=== PATIENT | female | born 1935 | race Caucasian/White ===

== ENCOUNTER 2018-11-17 19:30 | Observation (INO) | payer MEDICARE, OTHER ==
[~2018-11-17] VITALS: Ht 154.9 cm; Wt 48.2 kg
--- NOTE | 2018-11-17 19:27 | ER Report ---
History and Physical Time Seen By MD: 19:27 HPI/ROS CHIEF COMPLAINT: Vomiting, right red blood HISTORY OF PRESENT ILLNESS: 83-year-old female on Plavix and aspirin for hypertension and coronary artery disease, today vomited blood after developing sudden nausea proximally one hour prior to arrival. She describes a large amount of bright red blood with mixed with phlegm to the toilet. She called EMS who brought her in. On arrival. She has hemodynamically stable. She's complaining of severe nausea and vomiting. Peripheral IVs are established. Diagnostic studies are sent off. Patient denies taking NSAIDs or history of stomach problems. Patient states eating tuna casserole. She denies red food or red juice. REVIEW OF SYSTEMS: Respiratory: No cough, no dyspnea. Cardiovascular: No chest pain, no palpitations. Gastrointestinal: As above Musculoskeletal: No back pain. Allergies: Coded Allergies: Sulfa (Sulfonamide Antibiotics) (Verified Allergy, Unknown, 06/16/17) atorvastatin (Verified Allergy, Unknown, 06/16/17) glyburide (Verified Allergy, Unknown, 06/16/17) irbesartan (Verified Allergy, Unknown, 06/16/17) pioglitazone (Verified Allergy, Unknown, 06/16/17) ramipril (Verified Allergy, Unknown, 06/16/17) tetracycline (Verified Allergy, Unknown, 06/16/17) Uncoded Allergies: STEROIDS (Allergy, Unknown, 06/17/07) Home Meds Active Scripts Aspirin (ASPIRIN EC) 325 Mg Tablet., 325 MG PO NOON, #30 TAB Prov:RANDALL FONTANA DO 12/31/15 Reported Medications Blood Sugar Diagnostic (FREESTYLE LITE TEST STRIPS) 1 Each Strip, 1 EACH MC TID, STRIP 11/18/18 Estradiol Cypionate (DEPO-ESTRADIOL) 5 Mg/Ml Soln, 5 MG IM ONLY Q3WK 11/18/18 Albuterol Sulfate 0.083% (ALBUTEROL SULFATE 0.083%) 2.5 Mg/3 Ml Vial.neb, 1 VIAL INH 3-4XD PRN for SHORTNESS OF BREATH, INH 11/18/18 Fluticasone/Vilanterol 100/25 Mcg/Inh (BREO ELLIPTA 100/25 MCG) 1 Each Aer.pow.ba, 1 PUFF INH QDAY, INH 11/18/18 Insulin Detemir (LEVEMIR) 100 Unit/Ml Injs, 12 UNIT SUBQ QDAY 11/18/18 Metformin Hcl (METFORMIN HCL) 500 Mg Tablet, 1 TAB PO BID, TAB 11/18/18 Ezetimibe (ZETIA) 10 Mg Tablet, 10 MG PO QDAY, TAB 12/18/15 Estrogens, Conjugated 0.625 Mg/Ml Vag Cream (PREMARIN 0.625 MG/ML VAGINAL CR) 42.5 Gm Cream.appl, VG 3XW PRN for SEE COMMENT 12/18/15 Clonidine Hcl (Catapres) 0.2 Mg Tablet, 0.2 MG PO BID Take 1 tablet each morning, and evening. 02/10/11 Metoprolol Succinate (Toprol Xl) 100 Mg Tab.sr.24h, 100 MG PO BID 02/10/11 Discontinued Reported Medications Hum Insulin Nph/Reg Insulin Hm (RELION NOVOLIN 70-30 VIAL) 100 Unit/1 Ml Vial, 10 UNIT SQ, VIAL 01/23/15 Clopidogrel Bisulfate (Plavix) 75 Mg Tab, 75 MG PO QDAY Take 1 tablet by mouth daily. 02/10/11 Discontinued Scripts Metformin Hcl (METFORMIN HCL) 500 Mg Tablet, 500 MG PO QPM, #30 TAB Prov:RANDALL FONTANA DO 12/31/15 Sodium Chloride (SODIUM CHLORIDE) 1 Gm Tab, 1 GM PO BID, #60 TAB Prov:RANDALL FONTANA DO 12/31/15 Tramadol Hcl (TRAMADOL HCL) 50 Mg Tablet, 50-100 MG PO Q6H PRN for PAIN, #30 TAB Prov:RANDALL FONTANA DO 12/31/15 Valsartan (Valsartan) 160 Mg Tablet, 1 TAB PO QDAY, #30 TAB Prov:RANDALL FONTANA DO 12/31/15 Past Medical/Surgical History Patient has a past medical and surgical history of heart attack, hypertension, stents placed, spinal stenosis, arthritis, femoral head fracture, wears glasses, has diabetes, hysterectomy, total hip of the left. Reviewed Nurses Notes: Yes Old Medical Records Reviewed: Yes Hx Smoking: No Smoking Status: Never Smoker Exposure to Second Hand Smoke?: No Hx Substance Use Disorder: No Hx Alcohol Use: No Constitutional Vital Sign - Last 24 Hours 11/17/18 11/17/18 19:29 20:02 B/P (MAP) 110/58 (75) O2 Delivery Room Air Intake and Output 11/17/18 11/17/18 11/18/18 14:59 22:59 06:59 Intake Total 1005 ml Balance 1005 ml Physical Exam General Appearance: The patient is alert, has no immediate need for airway pr otection and no current signs of toxicity. Vital signs stable, afebrile, pulse ox normal HEENT: Pupils equal and round no injection. Oropharynx without redness or exudate, mucous. Membranes are moist Respiratory: Chest is non tender, lungs are clear to auscultation. Cardiac: regular rate and rhythm Gastrointestinal: Abdomen is soft mild epigastric tenderness, no masses, bowel sounds normal. Rectal: Brown stool, heme positive on fecal occult testing Musculoskeletal: Neck: Neck is supple and non tender. Extremities have full range of motion and are non tender. Skin: No rashes or lesions. DIFFERENTIAL DIAGNOSIS: After history and physical exam differential diagnosis was considered for upper GI bleeding including but not limited to ulcer disease, gastritis, Kim-Fernandes tear, and esophageal varices. Medical Decision Making Data Points Result Diagram: 11/18/18 1148 11/18/18 1148 Laboratory Hematology Test 11/17/18 00:00 11/17/18 19:54 11/17/18 21:02 Prothrombin Time 13.2 seconds (12.0-14.4) Prothromb Time International Ratio 1.00 Activated Partial Thromboplast Time 33 seconds (23-35) Amylase Level 117 U/L (0-110) Lipase 261 U/L (23-300) Lactate 2.9 mmol/L (0.7-2.1) Stool Occult Blood (IFOB) Positive (NEGATIVE) Chemistry Test 11/17/18 00:00 11/17/18 19:54 11/17/18 21:02 Prothrombin Time 13.2 seconds (12.0-14.4) Prothromb Time International Ratio 1.00 Activated Partial Thromboplast Time 33 seconds (23-35) Amylase Level 117 U/L (0-110) Lipase 261 U/L (23-300) Lactate 2.9 mmol/L (0.7-2.1) Stool Occult Blood (IFOB) Positive (NEGATIVE) Coagulation Test 11/17/18 00:00 Prothrombin Time 13.2 seconds Prothromb Time International Ratio 1.00 Activated Partial Thromboplast Time 33 seconds EKG/Imaging EKG Interpretation 12 lead EK Rhythm: normal sinus rhythm [place]: normal QRS: normal ST segments: normal, comparison to previous EKG dated 06/18/70, no significant change Imaging X-ray: Single view portable chest x-ray was obtained. I viewed the images myself on the PACS system. My interpretation of the images is: No infiltrate, no effusion, normal mediastinum., Comparison to previous chest x-ray 12/18/59, no significant change. The radiologist interpretation had no clinically significant variation from this interpretation. ED Course/Re-evaluation Clinical Indication for ER IV: Hydration, IV Access ED Course Patient was admitted to an examination room. H&P was done. The differential diagnoses was considered. Patient with hemodynamically stable vital signs. She admitted to vomiting bright red blood approximately a cup or 2. Patient is 2nd episode of dry heaves mostly phlegm with blood tinging. Patient's H&H is drop significantly, but her old H&H is 2 years old. She is on Plavix and aspirin for cardiac stenting 2004. Agents crossmatch for 2 units of blood. She's given Protonix IV 80 mg and a drip was started. She is admitted to the hospital. Her lactate is mildly elevated at 2.9. 11/17/2018 9:48:11 pm case discussed with Michel Herrera. General surgery on-call, who accepts the patient for admission. He would like medicine consult and be involved in her medical management. 11/17/2018 9:56:16 pm case discussed with Dr. Rita Shook hospitalist on-call, who involved in the internal management hospitalist care on this patient. Decision to Disposition Date: November 17, 2018 Decision to Disposition Time: 21:28 Depart Departure Latest Vital Signs Vital Signs Date Time Temp Pulse Resp B/P (MAP) Pulse Ox O2 Delivery O2 Flow Rate FiO2 11/17/18 20:02 110/58 (75) 11/17/18 19:29 Room Air Impression: Primary Impression: Upper GI bleeding Additional Impressions: CAD (coronary artery disease) Current use of senior care anticoagulation HTN (hypertension) Hyponatremia Condition: Improved Disposition: Admitted from ER Referrals: JOVANNY EDUARDO DO (PCP) Problem Qualifiers Additional Impressions: CAD (coronary artery disease) Coronary Disease-Associated Artery/Lesion type: unspecified vessel or lesion type [place] vs. transplanted heart: [place] heart Associated angina: angina presence unspecified Qualified Codes: I25.10 - Atherosclerotic heart disease of [place] coronary artery without angina pectoris HTN (hypertension) Hypertension type: essential hypertension Qualified Codes: I10 - Essential (primary) hypertension EDISON SALAZAR DO November 17, 2018 19:27
[~2018-11-17 19:30] MED LIST changes: -ALBU2.5V36 INH; -AMOX-362 PO; -BLOO1STR16 MC; -FLUT1AER INH; -LEVI SUBQ; -METR500T15 PO; +NS(*) 0.9% 1000 ML BAG 1,000 ML IV ONE; -PANT40TA65 PO; +PANTOPRAZOLE SOD 40 MG IV VIAL IVP ONE; -SUCR1TAB85 PO; -[UNRECOGNIZED DRUG - CODE] PO
[2018-11-17] MEDS ORDERED: ONDANSETRON 4 MG/2 ML VIAL IVP ONE (19:45)
[2018-11-17 20:16] LABS: PLATELET COUNT, AUTOMATED 338 K/uL (150-450)
--- NOTE | 2018-11-17 21:29 | EKG ---
FACILITY: [facility] - [place] PATIENT NAME: ASHTYN EDOUARD : [id number] MR: [id number] V: [id number] EXAM DATE: ORDERING PHYSICIAN: EDISON SALAZAR TECHNOLOGIST: CECELIA Test Reason : VOMITING BLOOD Blood Pressure : / mmHG Vent. Rate : 062 BPM Atrial Rate : 062 BPM P-R Int : 180 ms QRS Dur : 066 ms QT Int : 408 ms P-R-T Axes : 045 015 090 degrees QTc Int : 414 ms Normal sinus rhythm Normal ECG When compared with ECG of 16-JUN-2017 16:09, No significant change was found Confirmed by RAJ LONG ([id number]) on 11/17/2018 10:05:58 PM Referred By: Confirmed By:RAJ LONG
--- NOTE | 2018-11-17 21:39 | RADIOLOGY IMAGING REPORT ---
FACILITY: [facility] - [place] PATIENT NAME: Natalia Marrero : 1935 MR: [id number] V: [id number] EXAM DATE: ORDERING PHYSICIAN: EDISON SALAZAR TECHNOLOGIST: Location: [facility] Patient: Natalia Marrero : 1935 Visit/Account:[id number] Date of Sevice: 11/17/2018 EXAMINATION: Portable AP Chest HISTORY: Vomited blood. COMPARISON: 12/18/2015. FINDINGS: The lungs are clear. No focal consolidation or pleural effusion. No pneumothorax. Normal heart size and pulmonary vascularity. Aortic calcification. Visualized osseous structures appear intact. IMPRESSION: No evidence of acute cardiopulmonary disease. Report Dictated By: Trey Davis MD at 11/17/2018 9:33 PM Report E-Signed By: Trey Davis MD at 11/17/2018 9:35 PM WSN:[id number]
[2018-11-17] MEDS ORDERED: PANTOPRAZOLE SOD 40 MG IV VIAL IVP ONE (21:50)
[2018-11-17] MEDS ORDERED: PANTOPRAZOLE SOD(*)40 MG VIAL 80 MG in NS(*) 0.9% 100 ML BAG 100 ML IVPB ONE (21:50)
[2018-11-17] MEDS ORDERED: NS(*) 0.9% 1000 ML BAG 1,000 ML IV ONE (22:10)
[2018-11-17] MEDS ORDERED: ALBUTEROL 2.5 MG/3 ML NEB NEB PRN (22:45)
--- NOTE | 2018-11-17 23:05 | Hospitalist Consultation ---
History of Present Illness Requesting Physician Rashel Reason for Consult Medication management History of Present Illness 83yo female with a h/o T2DM, PVD and CAD who presented to the ER after a hematemesis event. She was in her normal state of health until after dinner. She became nauseated, went to the bathroom and vomited up bright red blood. Her last BM was 3 days ago and it was normal for her. She denies any black or maroon stools. She takes Aleve intermittently for her teeth. She last took one about a week ago. She takes about 1 a week. No changes in medications. She has been on ASA since 2004 since her [place]. She has been on Plavix for many years, also, but she isn't clear why she takes it. She denies cp/sob. History Problems: (1) Type 2 diabetes mellitus Status: Chronic (2) CAD (coronary artery disease) Status: Chronic (3) Hyponatremia Status: Acute (4) HTN (hypertension) Status: Chronic Home Meds Active Scripts Aspirin (ASPIRIN EC) 325 Mg Tablet.dr, 325 MG PO NOON, #30 TAB Prov:RANDALL FONTANA DO 12/31/15 Metformin Hcl (METFORMIN HCL) 500 Mg Tablet, 500 MG PO QPM, #30 TAB Prov:RANDALL FONTANA DO 12/31/15 Sodium Chloride (SODIUM CHLORIDE) 1 Gm Tab, 1 GM PO BID, #60 TAB Prov:RANDALL FONTANA DO 12/31/15 Tramadol Hcl (TRAMADOL HCL) 50 Mg Tablet, 50-100 MG PO Q6H PRN for PAIN, #30 TAB Prov:RANDALL FONTANA DO 12/31/15 Valsartan (Valsartan) 160 Mg Tablet, 1 TAB PO QDAY, #30 TAB Prov:RANDALL FONTANA DO 12/31/15 Reported Medications Ezetimibe (ZETIA) 10 Mg Tablet, 10 MG PO QDAY, TAB 12/18/15 Estrogens, Conjugated 0.625 Mg/Ml Vag Cream (PREMARIN 0.625 MG/ML VAGINAL CR) 42.5 Gm Cream.appl, VG 3XW PRN for SEE COMMENT 12/18/15 Hum Insulin Nph/Reg Insulin Hm (RELION NOVOLIN 70-30 VIAL) 100 Unit/1 Ml Vial, 10 UNIT SQ, VIAL 01/23/15 Clonidine Hcl (Catapres) 0.2 Mg Tablet, 0.2 MG PO BID Take 1 tablet each morning, noon, and evening. 02/10/11 Metoprolol Succinate (Toprol Xl) 100 Mg Tab.sr.24h, 100 MG PO DAILY Take 1 tablet by mouth daily. 02/10/11 Clopidogrel Bisulfate (Plavix) 75 Mg Tab, 75 MG PO QDAY Take 1 tablet by mouth daily. 02/10/11 Allergies: Coded Allergies: Sulfa (Sulfonamide Antibiotics) (Verified Allergy, Unknown, 06/16/17) atorvastatin (Verified Allergy, Unknown, 06/16/17) glyburide (Verified Allergy, Unknown, 06/16/17) irbesartan (Verified Allergy, Unknown, 06/16/17) pioglitazone (Verified Allergy, Unknown, 06/16/17) ramipril (Verified Allergy, Unknown, 06/16/17) tetracycline (Verified Allergy, Unknown, 06/16/17) Uncoded Allergies: STEROIDS (Allergy, Unknown, 06/17/07) Other Social/Family Hx She lives alone. . She stopped smoking in 2004 and has a 52 pack year history. Hx Smoking: No Smoking Status: Former Smoker Exposure to Second Hand Smoke?: No Caffeine Intake: Coffee Caffeine/Cups Per Day: 1 cup Hx Alcohol Use: No Hx Substance Use Disorder: No Review of Systems All Systems Reviewed/Normal: Yes, Except as Noted Exam Vital Signs Vital Signs Date Time Temp Pulse Resp B/P (MAP) Pulse Ox O2 Delivery O2 Flow Rate FiO2 11/17/18 20:02 110/58 (75) 11/17/18 19:29 Room Air General Appearance: Alert, Awake, No Acute Distress Eyes: Other (conjunctival hemorrhage in right low mid eye) ENT: Moist Mucous Membranes Cardiovascular: Regular Rate and Rhythm Respiratory: Clear to Auscultation GI: Abd Soft and Non-Tender Extremities: No Edema Integumentary: No Jaundice, No Cyanosis Medical Decision Making Data Points Result Diagram: 11/17/18 0000 11/17/18 Item Value Date Time Lactate 2.9 mmol/L H 11/17/181953 Troponin I < 0.012 ng/ml 11/17/18 Total Bilirubin < 0.1 mg/dl L 11/17/18 Aspartate Amino Transf (AST/SGOT) 18 U/L 11/17/18 Alanine Aminotransferase (ALT/SGPT) 14 U/L 11/17/18 Alkaline Phosphatase 145 U/L H 11/17/18 Neutrophils (%) (Auto) 72.3 % 11/17/18 Lymphocytes (%) (Auto) 19.1 % 11/17/18 Monocytes (%) (Auto) 5.4 % 11/17/18 Eosinophils (%) (Auto) 2.1 % 11/17/18 Basophils (%) (Auto) 1.1 % 11/17/18 Stool Occult Blood (IFOB) Positive H 11/17/18 210 Prothromb Time International Ratio 1.00 11/17/18 Sodium Level 129 mmol/L L 06/16/17 1541 Creatinine 1.20 mg/dl H 06/16/17 1541 Creatinine 1.20 mg/dl H 11/17/18 Amylase Level 117 U/L H 11/17/18 Lipase 261 U/L 11/17/18 EKG / Imaging EKG Interpretation Vent. Rate : 062 BPM Atrial Rate : 062 BPM P-R Int : 180 ms QRS Dur : 066 ms QT Int : 408 ms P-R-T Axes : 045 015 090 degrees QTc Int : 414 ms Normal sinus rhythm Normal ECG When compared with ECG of 16-JUN-2017 16:09, No significant change was found Confirmed by RAJ LONG ([id number]) on 11/17/2018 10:05:58 PM Imaging CXR - No evidence of acute cardiopulmonary disease. Assessment and Plan Problems: (1) Upper GI bleeding Status: Acute Assessment & Plan: She presented with one episode of bloody emesis. Exacerbated by ASA/Plavix use and weekly Aleve use. Hgb is decreased. BP/P stable. ASA/Plavix/NSAIDs to be held. Dr. Rhodes is managing. (2) CAD (coronary artery disease) Status: Chronic Assessment & Plan: [place] with stent placement in 2004. Not on a statin, but taking ASA. It is unclear when the Plavix was added or exactly why. Will try to get records from Dr. Eduardo to clarify. (3) Type 2 diabetes mellitus Status: Chronic Assessment & Plan: Chronically on Metformin 500mg bid and Lantus 10 units bid. Holding both for now. Q6 glucose with SSI level 2 to cover. (4) HTN (hypertension) Status: Chronic Assessment & Plan: Chronically on clonidine and Toprol. BP wnl. Holding both for now secondary to the hematemesis. (5) History of stent insertion of renal artery Status: Resolved Assessment & Plan: She can't remember why or when this was done. Copies to: JOVANNY EDUARDO DO; RANDALL RHODES MD ; Venous Thromboembolism Antithrombotics Is Pt On Any Antithrombotics?: No Exam Sepsis Risk: No Definite Risk Problem Qualifiers (1) CAD (coronary artery disease): Coronary Disease-Associated Artery/Lesion type: unspecified vessel or lesion type [place] vs. transplanted heart: [place] heart Associated angina: angina presence unspecified Qualified Codes: I25.10 - Atherosclerotic heart disease of [place] coronary artery without angina pectoris (2) HTN (hypertension): Hypertension type: essential hypertension Qualified Codes: I10 - Essential (primary) hypertension RAJ LONG MD November 17, 2018 23:04
[2018-11-17 23:21] VITALS: BP 176/81
[2018-11-18] VITALS (17 sets, daily range): BP systolic 167–218; BP diastolic 66–108; Ht 154.9 cm; Wt 48.2 kg
[2018-11-18 06:14] LABS: PLATELET COUNT, AUTOMATED 225 K/uL (150-450)
[2018-11-18] MEDS ORDERED: PANTOPRAZOLE SOD(*)40 MG VIAL 80 MG in NS(*) 0.9% 100 ML BAG 100 ML IV SCH (06:35)
[2018-11-18] MEDS ORDERED: NS(*) 0.9% 1000 ML BAG 1,000 ML IV PRN (07:20)
[2018-11-18] MEDS ORDERED: FLUSH 10 ML SYR IVP PRN (07:20)
--- NOTE | 2018-11-18 07:59 | Gen Surgery History & Physical ---
History of Present Illness Chief Complaint Hematemesis History of Present Illness 83yo female with CAD, DM, HTN presents with 1 episode of hematemesis last evening, significant volume. No abdominal pain. No melana or BRBPR. Last BM 3 days ago. No previous h/o PUD. No h/o EGD. Has had nausea for last 24 hours. Takes full strength ASA and Plavix for CAD with coronary stent. Last stent was placed over 10 years ago. Rare NSAIDS otherwise. Did take 2 Aleve last week but that's all. No steroid use. History Problems: (1) Hyperlipidemia Status: Chronic (2) Renovascular hypertension Status: Chronic (3) Right knee pain Status: Chronic (4) CAD (coronary artery disease) Status: Chronic (5) HTN (hypertension) Status: Chronic (6) Type 2 diabetes mellitus Status: Chronic (7) S/P hysterectomy Status: Chronic Home Meds Active Scripts Aspirin (ASPIRIN EC) 325 Mg Tablet.dr, 325 MG PO NOON, #30 TAB Prov:RANDALL FONTANA DO 12/31/15 Metformin Hcl (METFORMIN HCL) 500 Mg Tablet, 500 MG PO QPM, #30 TAB Prov:RANDALL FONTANA DO 12/31/15 Sodium Chloride (SODIUM CHLORIDE) 1 Gm Tab, 1 GM PO BID, #60 TAB Prov:RANDALL FONTANA DO 12/31/15 Tramadol Hcl (TRAMADOL HCL) 50 Mg Tablet, 50-100 MG PO Q6H PRN for PAIN, #30 TAB Prov:RANDALL FONTANA DO 12/31/15 Valsartan (Valsartan) 160 Mg Tablet, 1 TAB PO QDAY, #30 TAB Prov:RANDALL FONTANA DO 12/31/15 Reported Medications Ezetimibe (ZETIA) 10 Mg Tablet, 10 MG PO QDAY, TAB 12/18/15 Estrogens, Conjugated 0.625 Mg/Ml Vag Cream (PREMARIN 0.625 MG/ML VAGINAL CR) 42.5 Gm Cream.appl, VG 3XW PRN for SEE COMMENT 12/18/15 Hum Insulin Nph/Reg Insulin Hm (RELION NOVOLIN 70-30 VIAL) 100 Unit/1 Ml Vial, 10 UNIT SQ, VIAL 01/23/15 Clonidine Hcl (Catapres) 0.2 Mg Tablet, 0.2 MG PO BID Take 1 tablet each morning, noon, and evening. 02/10/11 Metoprolol Succinate (Toprol Xl) 100 Mg Tab.sr.24h, 100 MG PO DAILY Take 1 tablet by mouth daily. 02/10/11 Clopidogrel Bisulfate (Plavix) 75 Mg Tab, 75 MG PO QDAY Take 1 tablet by mouth daily. 02/10/11 Allergies: Coded Allergies: Sulfa (Sulfonamide Antibiotics) (Verified Allergy, Unknown, 06/16/17) atorvastatin (Verified Allergy, Unknown, 06/16/17) glyburide (Verified Allergy, Unknown, 06/16/17) irbesartan (Verified Allergy, Unknown, 06/16/17) pioglitazone (Verified Allergy, Unknown, 06/16/17) ramipril (Verified Allergy, Unknown, 06/16/17) tetracycline (Verified Allergy, Unknown, 06/16/17) Uncoded Allergies: STEROIDS (Allergy, Unknown, 06/17/07) Review of Systems All Systems Reviewed/Normal: Yes, Except as Noted Gastrointestinal: Nausea, Hematemesis Exam General Appearance: Alert, Awake, No Acute Distress, Afebrile Neuro: No Gross deficits Eyes: PERRLA GI: Abd Soft and Non-Tender Extremities: Warm, Perfused Psych: Alert & Oriented X3, Appropriate Mood & Affect Medical Decision Making Data Points Result Diagram: 11/18/1836 11/18/18 0536 Assessment and Plan Problems: (1) Upper GI bleeding Status: Acute Assessment & Plan: 11/18/18: Admit, NPO, IV fluids, PPI gtt, follow H/H. Hospitalist consultation to help with comorbid management. Will confer with them regarding transfusion criteria given her h/o CAD. Will proceed with EGD today to evaluate UGI tract for source of hematemesis. Will check for H.pylori. Hold off on any blood thinners or NSAIDS. Will let plavix wear off. Plan d/w pt. She seems to understand and is agreeable with this plan. (2) Anemia due to acute blood loss Status: Acute (3) Type 2 diabetes mellitus Status: Chronic (4) Current use of paint mixer hand anticoagulation Status: Acute (5) HTN (hypertension) Status: Chronic Condition Stable. Time Spent: < 30 min Venous Thromboembolism Antithrombotics Is Pt On Any Antithrombotics?: No Problem Qualifiers (1) Type 2 diabetes mellitus: Diabetes mellitus paint mixer hand insulin use: without paint mixer hand use Diabetes mellitus complication status: without complication Qualified Codes: E11.9 - Type 2 diabetes mellitus without complications (2) HTN (hypertension): Hypertension type: essential hypertension Qualified Codes: I10 - Essential (primary) hypertension RANDALL RHODES MD November 18, 2018 07:59
[2018-11-18] MEDS: ONDANSETRON 4 MG/2 ML VIAL IVP PRN ×2 (08:03→17:49)
[2018-11-18] MEDS ORDERED: METOPROLOL TART 5 MG/5 ML VIAL IVP ONE (09:10)
--- NOTE | 2018-11-18 09:33 | Hospitalist Progress Note ---
Subjective Progress Notes Subjective She was admitted for hematemesis. She has no complaints this morning. She plans to have EGD this afternoon. Patient Complains of: Cardiovascular: No: Chest Pain Respiratory: No: Shortness of Breath Physical Exam Vital Signs Date Time Temp Pulse Resp B/P (MAP) Pulse Ox O2 Delivery O2 Flow Rate FiO2 11/18/18 07:25 98 Nasal Cannula 1.0 11/18/18 07:04 98.5 66 16 171/68 (102) Intake and Output 11/18/18 01:00 Intake Total 1255 ml Balance 1255 ml Intake IV Total 1255 ml General Appearance: Alert, Awake, No Acute Distress, Afebrile Neuro: No Gross deficits Cardiovascular: Regular Rate and Rhythm Respiratory: No Respiratory Distress, Clear to Auscultation Psych: Alert & Oriented X3, Appropriate Mood & Affect Result Diagram: 11/18/18 0536 11/18/1836 Assessment and Plan Problems: (1) Upper GI bleeding Status: Acute Assessment & Plan: She presented with one episode of bloody emesis. Exacerbated by ASA/Plavix use and weekly Aleve use. Hgb is decreased. BP/P stable. ASA/Plavix/NSAIDs to be held. Dr. Kiser is managing. (2) CAD (coronary artery disease) Status: Chronic Assessment & Plan: [place] with stent placement in 2004. Not on a statin, but taking ASA. It is unclear when the Plavix was added or exactly why. Will try to get records from Dr. Nunez to clarify. (3) Type 2 diabetes mellitus Status: Chronic Assessment & Plan: Chronically on Metformin 500mg bid and Lantus 10 units bid. Holding both for now. Q6 glucose with SSI level 2 to cover. (4) HTN (hypertension) Status: Chronic Assessment & Plan: Chronically on clonidine and Toprol. BP wnl. Holding both for now secondary to the hematemesis. Will give one dose IV Metoprolol for elevated blood pressures. (5) History of stent insertion of renal artery Status: Resolved Assessment & Plan: She can't remember why or when this was done. Exam Sepsis Risk: No Definite Risk Problem Qualifiers (1) CAD (coronary artery disease): Coronary Disease-Associated Artery/Lesion type: unspecified vessel or lesion type [place] vs. transplanted heart: [place] heart Associated angina: angina presence unspecified Qualified Codes: I25.10 - Atherosclerotic heart disease of [place] coronary artery without angina pectoris (2) Type 2 diabetes mellitus: Diabetes mellitus intermediate insulin use: without intermediate use Diabetes mellitus complication status: without complication Qualified Codes: E11.9 - Type 2 diabetes mellitus without complications (3) HTN (hypertension): Hypertension type: essential hypertension Qualified Codes: I10 - Essential (primary) hypertension DEYSI ROGERS November 18, 2018 09:33
--- NOTE | 2018-11-18 09:34 | NUR ---
Consent for release of medical records signed and faxed to PCP office aprox [phone] Addendum: 11/18/18 at 0935 by DALLIN GUZMAN RN Amended: Links added.
[2018-11-18] MEDS ORDERED: NORMOSOL R SOLN(*) 1000 ML BAG 1,000 ML IV ONE (11:00)
[2018-11-18] MEDS: PANTOPRAZOLE SOD(*)40 MG VIAL 80 MG in NS(*) 0.9% 100 ML BAG 100 ML IV SCH ×2 (11:05→21:08)
--- NOTE | 2018-11-18 11:50 | EKG ---
FACILITY: [facility] - [place], [place] PATIENT NAME: AHSTYN EDOUARD : [id number] MR: [id number] V: [id number] EXAM DATE: ORDERING PHYSICIAN: DEYSI ROGERS TECHNOLOGIST: TRACY Villela Reason : CP Blood Pressure : / mmHG Vent. Rate : 077 BPM Atrial Rate : 077 BPM P-R Int : 188 ms QRS Dur : 066 ms QT Int : 346 ms P-R-T Axes : 060 013 111 degrees QTc Int : 391 ms Normal sinus rhythm T wave abnormality, consider lateral ischemia Abnormal ECG When compared with ECG of 17-NOV-2018 21:21, No significant change was found Confirmed by RANDALL FONTANA ([id number]) on 11/18/2018 3:24:10 PM Referred By: Confirmed By:RANDALL FONTANA
[2018-11-18] MEDS ORDERED: NS(*) 0.9% 500 ML BAG 500 ML ONE (13:22)
[2018-11-18] MEDS ORDERED: LIDOCAINE MPF 1% 5 ML VIAL ONE (14:43)
[2018-11-18] MEDS ORDERED: PROPOFOL EMUL(*) 10MG/ML 20 ML 40 ML ONE (14:43)
--- NOTE | 2018-11-18 14:45 | NUR ---
PT. ADMITTED TO PREOP. TRANSFERRED VIA BED. SBAR FROM [facility]. SAFETY ENSURED DURING TRANSFER.
[2018-11-18] MEDS ORDERED: LABETALOL HCL 25 MG/5 ML SYRINGE IVP ONE ×2 (15:05→15:30)
[2018-11-18] MEDS ORDERED: hydrALAZINE HCL 20 MG/ML VIAL ONE (16:22)
[2018-11-18] MEDS ORDERED: NS(*) 0.9% 250 ML BAG 250 ML ONE (17:56)
[2018-11-18] MEDS ORDERED: BLOO1STR16 MC (18:26)
[2018-11-18] MEDS ORDERED: METF-450 PO (18:26)
[2018-11-18] MEDS ORDERED: ALBU2.5V36 INH (18:26)
[2018-11-18] MEDS ORDERED: FLUT1AER INH (18:26)
[2018-11-18] MEDS ORDERED: EST5I IM ONLY (18:26)
[2018-11-18] MEDS ORDERED: LEVI SUBQ (18:26)
[2018-11-18] MEDS ORDERED: NS(*) 0.9% 1000 ML BAG 1,000 ML ONE (18:28)
[2018-11-18] MEDS: METRONIDAZOLE 500 MG TABLET PO SCH (21:09)
[2018-11-18] MEDS: AMOXICILLIN 500 MG CAP PO SCH (21:09)
[2018-11-18] MEDS: METOPROLOL SUCC XL 50 MG TABCR 50 MG TAB.ER.24H PO SCH (21:09)
[2018-11-18] MEDS: cloNIDine HCL 0.1 MG TAB PO SCH (21:09)
[2018-11-18] MEDS: [UNRECOGNIZED DRUG - OTHER] PO SCH (21:09)
[2018-11-18] MEDS: INSULIN HUM LISPRO 100 UN/ML 3 ML VIAL SUBQ PRN (21:50)
[2018-11-19 00:11] VITALS: BP 97/53
[2018-11-19 01:39] VITALS: BP 117/65
[2018-11-19 03:32] VITALS: BP 134/67
[2018-11-19 05:52] LABS: PLATELET COUNT, AUTOMATED 188 K/uL (150-450)
--- NOTE | 2018-11-19 06:36 | General Surgery Progress Note ---
Subjective Progress Notes Subjective No complaints this morning. No N/V, no abdominal pain, no hematemesis, no melena or hematochezia. Physical Exam Vital Signs Date Time Temp Pulse Resp B/P (MAP) Pulse Ox O2 Delivery O2 Flow Rate FiO2 11/19/18 03:54 67 11/19/18 03:32 98.2 18 134/67 (89) 95 Room Air 11/18/18 07:25 1.0 Intake and Output 11/19/18 07:00 Intake Total 2159 ml Balance 2159 ml Intake IV Total 1409 ml Blood Product 750 ml # Voids 8 # [place] 0 General Appearance: Alert, Awake, No Acute Distress, Afebrile GI: Soft and Non-Tender Extremities: Warm, Perfused Result Diagram: 11/19/1844 11/19/1844 Assessment and Plan Problems: (1) Upper GI bleeding Status: Acute Assessment & Plan: 11/18/18: Admit, NPO, IV fluids, PPI gtt, follow H/H. Hospitalist consultation to help with comorbid management. Will confer with them regarding transfusion criteria given her h/o CAD. Will proceed with EGD today to evaluate UGI tract for source of hematemesis. Will check for H.pylori. Hold off on any blood thinners or NSAIDS. Will let plavix wear off. Plan d/w pt. She seems to understand and is agreeable with this plan. 11/19/18: Multiple ulcers in fundus, no bleeding, H.pylori positive. Will convert from PPI gtt to PO pantoprazole, 40mg bid, this morning. Started on bismuth, amoxicillin, metronidazole for H.pylori as well. Will let her eat this morning and if she does well then home later today. (2) Anemia due to acute blood loss Status: Acute (3) Type 2 diabetes mellitus Status: Chronic (4) Current use of buttermaker helper anticoagulation Status: Acute (5) HTN (hypertension) Status: Chronic (6) H pylori ulcer Status: Chronic Condition Stable. Time Spent: < 30 min Exam Sepsis Risk: No Definite Risk Problem Qualifiers (1) Type 2 diabetes mellitus: Diabetes mellitus buttermaker helper insulin use: without half-way use Diabetes mellitus complication status: without complication Qualified Codes: E11.9 - Type 2 diabetes mellitus without complications (2) HTN (hypertension): Hypertension type: essential hypertension Qualified Codes: I10 - Essential (primary) hypertension RANDALL RHODES MD November 19, 2018 06:36
[2018-11-19 07:52] VITALS: BP 168/87
[2018-11-19] MEDS: INSULIN HUM LISPRO 100 UN/ML 3 ML VIAL SUBQ PRN (08:02)
[2018-11-19] MEDS ORDERED: EZETIMIBE 10 MG TAB PO SCH (09:00)
[2018-11-19] MEDS ORDERED: PANTOPRAZOLE SOD 40 MG TABEC PO SCH (09:00)
[2018-11-19] MEDS: cloNIDine HCL 0.1 MG TAB PO SCH (09:34)
[2018-11-19] MEDS: METOPROLOL SUCC XL 50 MG TABCR 50 MG TAB.ER.24H PO SCH (09:34)
[2018-11-19] MEDS: [UNRECOGNIZED DRUG - OTHER] PO SCH ×2 (09:34→12:15)
[2018-11-19] MEDS: METRONIDAZOLE 500 MG TABLET PO SCH ×2 (09:34→12:15)
[2018-11-19] MEDS: AMOXICILLIN 500 MG CAP PO SCH (09:38)
--- NOTE | 2018-11-19 11:03 | Hospitalist Progress Note ---
Subjective Progress Notes Subjective She had EGD yesterday with Dr. Kiser, who found ulcers and she is HPylori positive. She states she feels much better today. No more episodes of vomiting. She is trying to eat breakfast this morning. Patient Complains of: Cardiovascular: No: Chest Pain Respiratory: No: Shortness of Breath Physical Exam Vital Signs Date Time Temp Pulse Resp B/P (MAP) Pulse Ox O2 Delivery O2 Flow Rate FiO2 11/19/18 09:34 93 Room Air 11/19/18 07:52 97.7 66 16 168/87 (114) 1.0 Intake and Output 11/19/18 01:00 Intake Total 2159 ml Balance 2159 ml Intake IV Total 1409 ml Blood Product 750 ml # Voids 9 # [place] 0 General Appearance: Alert, Awake, No Acute Distress, Afebrile Neuro: No Gross deficits Cardiovascular: Regular Rate and Rhythm Respiratory: No Respiratory Distress, Clear to Auscultation GI: Soft and Non-Tender Psych: Alert & Oriented X3, Appropriate Mood & Affect Result Diagram: 11/19/1844 11/19/1844 Assessment and Plan Problems: (1) Upper GI bleeding Status: Acute Assessment & Plan: She presented with one episode of bloody emesis. Exacerbated by ASA/Plavix use and weekly Aleve use. Hgb is decreased. BP/P stable. ASA/Plavix/NSAIDs to be held. Dr. Kiser is managing. (2) CAD (coronary artery disease) Status: Chronic Assessment & Plan: [place] with stent placement in 2004. Not on a statin, but taking ASA. It is unclear when the Plavix was added or exactly why. Will try to get records from Dr. Eduardo to clarify. She will follow up with Dr. Eduardo upon discharge regarding Plavix. Patient reports she has not been taking Plavix only Aspirin. Recommend patient continue Aspirin only at this time. (3) Type 2 diabetes mellitus Status: Chronic Assessment & Plan: Chronically on Metformin 500mg bid and Lantus 10 units bid. Q6 glucose with SSI level 2 to cover. (4) HTN (hypertension) Status: Chronic Assessment & Plan: Chronically on clonidine and Toprol. BP wnl. (5) History of stent insertion of renal artery Status: Resolved Assessment & Plan: She can't remember why or when this was done. Copies to: JOVANNY EDUARDO DO ; Exam Sepsis Risk: No Definite Risk Problem Qualifiers (1) CAD (coronary artery disease): Coronary Disease-Associated Artery/Lesion type: unspecified vessel or lesion type [place] vs. transplanted heart: [place] heart Associated angina: angina presence unspecified Qualified Codes: I25.10 - Atherosclerotic heart disease of [place] coronary artery without angina pectoris (2) Type 2 diabetes mellitus: Diabetes mellitus terminal computer operator insulin use: without terminal computer operator use Diabetes mellitus complication status: without complication Qualified Codes: E11.9 - Type 2 diabetes mellitus without complications (3) HTN (hypertension): Hypertension type: essential hypertension Qualified Codes: I10 - Essential (primary) hypertension DEYSI ROGERS November 19, 2018 11:03
[2018-11-19] MEDS ORDERED: AMOX-362 PO (13:08)
[2018-11-19] MEDS ORDERED: PANT40TA65 PO (13:08)
[2018-11-19] MEDS ORDERED: [UNRECOGNIZED DRUG - CODE] PO (13:08)
[2018-11-19] MEDS ORDERED: METR500T15 PO (13:08)
[2018-11-19] MEDS ORDERED: SUCR1TAB85 PO (13:15)
--- NOTE | 2018-11-19 13:17 | Short(Outpt) Discharge Summary ---
Discharge Summary Reason for Hosp/Final Diag: (1) Upper GI bleeding Status: Acute Hospital Course & Plan: 11/18/18: Admit, NPO, IV fluids, PPI gtt, follow H/H. Hospitalist consultation to help with comorbid management. Will confer with them regarding transfusion criteria given her h/o CAD. Will proceed with EGD today to evaluate UGI tract for source of hematemesis. Will check for H.pylori. Hold off on any blood thinners or NSAIDS. Will let plavix wear off. Plan d/w pt. She seems to understand and is agreeable with this plan. 11/19/18: Multiple ulcers in fundus, no bleeding, H.pylori positive. Will convert from PPI gtt to PO pantoprazole, 40mg bid, this morning. Started on bismuth, amoxicillin, metronidazole for H.pylori as well. Will let her eat this morning and if she does well then home later today. 11/19/18 (evening): Doing well. EGD yesterday with gastric ulcers, no bleeding. H/H up today. No other signs of bleeding. Will d/c to home today on H pylori/ulcer treatment and f/u in 2 weeks. (2) Anemia due to acute blood loss Status: Acute (3) Type 2 diabetes mellitus Status: Chronic (4) Current use of middle or intermediate school principal anticoagulation Status: Acute (5) HTN (hypertension) Status: Chronic (6) H pylori ulcer Status: Chronic Departure Discharge to: Home, Self Care Discharge Instructions Home Meds Active Scripts Sucralfate (CARAFATE) 1 Gm Tablet, 1 TAB PO QID, #120 TAB 0 Refills Prov:RANDALL RHODES MD 11/19/18 Pantoprazole Sodium (PANTOPRAZOLE SODIUM) 40 Mg Tablet.dr, 1 TAB PO BID, #60 TAB 6 Refills Prov:RANDALL RHODES MD 11/19/18 Metronidazole (METRONIDAZOLE) 500 Mg Tablet, 1 TAB PO QID, #56 TAB 0 Refills Prov:RANDALL RHODES MD 11/19/18 Bismuth Subsalicylate (BISMATROL) 262 Mg/15 Ml Susp, 15 ML PO QID, #420 ML 0 Refills Prov:RANDALL RHODES MD 11/19/18 Amoxicillin (AMOXICILLIN) 500 Mg Capsule, 2 CAPSULE PO BID, #56 CAPSULE 0 Refills Prov:RANDALL RHODES MD 11/19/18 Aspirin (ASPIRIN EC) 325 Mg Tablet., 325 MG PO NOON, #30 TAB Prov:RANDALL FONTANA DO 12/31/15 Reported Medications Blood Sugar Diagnostic (FREESTYLE LITE TEST STRIPS) 1 Each Strip, 1 EACH MC TID, STRIP 11/18/18 Estradiol Cypionate (DEPO-ESTRADIOL) 5 Mg/Ml Soln, 5 MG IM ONLY Q3WK 11/18/18 Albuterol Sulfate 0.083% (ALBUTEROL SULFATE 0.083%) 2.5 Mg/3 Ml Vial.neb, 1 VIAL INH 3-4XD PRN for SHORTNESS OF BREATH, INH 11/18/18 Fluticasone/Vilanterol 100/25 Mcg/Inh (BREO ELLIPTA 100/25 MCG) 1 Each Aer.pow.ba, 1 PUFF INH QDAY, INH 11/18/18 Insulin Detemir (LEVEMIR) 100 Unit/Ml Injs, 12 UNIT SUBQ QDAY 11/18/18 Metformin Hcl (METFORMIN HCL) 500 Mg Tablet, 1 TAB PO BID, TAB 11/18/18 Ezetimibe (ZETIA) 10 Mg Tablet, 10 MG PO QDAY, TAB 12/18/15 Estrogens, Conjugated 0.625 Mg/Ml Vag Cream (PREMARIN 0.625 MG/ML VAGINAL CR) 42.5 Gm Cream.appl, VG 3XW PRN for SEE COMMENT 12/18/15 Clonidine Hcl (Catapres) 0.2 Mg Tablet, 0.2 MG PO BID Take 1 tablet each morning, and evening. 02/10/11 Metoprolol Succinate (Toprol Xl) 100 Mg Tab.sr.24h, 100 MG PO BID 02/10/11 Discontinued Reported Medications Hum Insulin Nph/Reg Insulin Hm (RELION NOVOLIN 70-30 VIAL) 100 Unit/1 Ml Vial, 10 UNIT SQ, VIAL 01/23/15 Clopidogrel Bisulfate (Plavix) 75 Mg Tab, 75 MG PO QDAY Take 1 tablet by mouth daily. 02/10/11 Discontinued Scripts Metformin Hcl (METFORMIN HCL) 500 Mg Tablet, 500 MG PO QPM, #30 TAB Prov:RANDALL FONTANA DO 12/31/15 Sodium Chloride (SODIUM CHLORIDE) 1 Gm Tab, 1 GM PO BID, #60 TAB Prov:RANDALL FONTANA DO 12/31/15 Tramadol Hcl (TRAMADOL HCL) 50 Mg Tablet, 50-100 MG PO Q6H PRN for PAIN, #30 TAB Prov:RANDALL FONTANA DO 12/31/15 Valsartan (Valsartan) 160 Mg Tablet, 1 TAB PO QDAY, #30 TAB Prov:RANDALL FONTANA DO 12/31/15 Follow up Referrals: General Surgery - 12/03/18 @ Surgery, General with RANDALL RHODES MD You have a follow up appointment scheduled with Dr. Rhodes on 12/03/18, at 11:30am. Diet: Regular Activity: As Tolerated Special Instructions: Avoid NSAIDS (non-steroidal anti-inflammatory drugs such as ibuprofen, aspirin, aleve, advil, naprosyn, naproxen, meloxicam, mobic, or any medication that contains NSAIDS). Tylenol is OK. Don't take your plavix (clopedigrel) until I see you back in my office in 2 weeks. Take the pantoprazole twice every day until I tell you otherwise, the amoxicillin, 2 pills twice every day until you run out (2 weeks), metronidazole 1 pill 4 times every day until you run out (2 weeks), carafate 4 times every day until you run out (4 weeks), and bismuth subsalicylate 4 times every day (2 weeks). Problem Qualifiers (1) Type 2 diabetes mellitus: Diabetes mellitus longterm insulin use: without longterm use Diabetes mellitus complication status: without complication Qualified Codes: E11.9 - Type 2 diabetes mellitus without complications (2) HTN (hypertension): Hypertension type: essential hypertension Qualified Codes: I10 - Essential (primary) hypertension RANDALL RHODES MD November 19, 2018 13:14
[2018-11-19] MEDS ORDERED: metFORMIN HCL 500 MG TAB PO SCH (17:00)
== END 2018-11-19 13:01 | disposition home or self-care (01) ==
LOC: ER 19:42 → INTOOBSV 22:42 → MED 22:42
PROVIDERS: ADMIT Surgery; ATTEND Surgery
DX: K25.7 Chronic gastric ulcer without hemorrhage or perforation (principal); D62 Acute posthemorrhagic anemia; B96.81 Helicobacter pylori [H. pylori] as the cause of diseases classified elsewhere; I25.10 Atherosclerotic heart disease of native coronary artery without angina pectoris; I10 Essential (primary) hypertension; E11.9 Type 2 diabetes mellitus without complications; E78.5 Hyperlipidemia, unspecified; E87.1 Hypo-osmolality and hyponatremia; I25.2 Old myocardial infarction; M19.90 Unspecified osteoarthritis, unspecified site; M48.00 Spinal stenosis, site unspecified; Z95.5 Presence of coronary angioplasty implant and graft; Z87.891 Personal history of nicotine dependence; Z79.01 Long term (current) use of anticoagulants; Z79.4 Long term (current) use of insulin; Z79.82 Long term (current) use of aspirin; Z79.899 Other long term (current) drug therapy
CPT/HCPCS: 36415; 36416; 36430; 43235; 71045; 81001; 82150; 82274; 82948; 83605; 83690; 84484; 85014; 85018; 85025; 85610; 85730; 86677; 86850; 86900; 86901; 86920; 93005; 96361; 96372; 96374; 96375; 96376; 99284; A9270; C9113; G0378; J0360; J1815; J2001; J2405; J2704; J7030; J7050; P9016; 82040; 82247; 82310; 82374; 82435; 82565; 82947; 84075; 84132; 84155; 84295; 84450; 84460; 84520

== ENCOUNTER → 2018-11-17 | Outpatient (CLI) | payer MEDICARE, OTHER ==
[~2018-11-17] MED LIST: ALBU2.5V36 INH; AMO500 PO; AMOX-362 PO; ASP325 PO; ASPI-719 PO; ASPI-764 PO; BLOO1STR16 MC; CEFU250T67 PO; CIPR500S2 PO; CLO75 PO; CLON-393 PO; ESOM40CA42 PO; EST42T PV; EST5I IM ONLY; ESTR42.5 VG; EXF5/160PT PO; EZE10 PO; EZET10TA41 PO; FLUT1AER INH; HUM100VI SQ; IBUP-1618 PO; IPRA3AMP37 IH; LEVI SUBQ; LEVO-85 PO; LOR5 PO; METF-450 PO; METO-235 PO; METR500T15 PO; NOVALOG; ONDA4TAB97 PO; OXYC-865 PO; PANT40TA65 PO; PRIMARIN; SITA50TA7 PO; SODCTAB PO; SUCR1TAB85 PO; TRAM-420 PO; VALS160T8 PO; [UNRECOGNIZED DRUG - CODE] PO; [UNRECOGNIZED DRUG - OTHER]
[2018-11-18 08:43] VITALS: BMI 20.0
== END ==
LOC: AMB 19:12
PROVIDERS: ATTEND Nurse Practitioner
DX: K92.0 Hematemesis (principal)
CPT/HCPCS: A0425; A0427

== ENCOUNTER → 2019-01-04 | Outpatient (CLI) | payer MEDICARE, OTHER ==
[2018-11-18 08:43] VITALS: BMI 20.0
[~2019-01-04] MED LIST changes: +ALBU2.5V36 INH; +AMOX-362 PO; +ASPI-757 PO; +BLOO1STR16 MC; +CLOP75TA43 PO; +FLUT1AER INH; +LEVI SUBQ; +METR500T15 PO; -NS(*) 0.9% 1000 ML BAG 1,000 ML IV ONE; +PANT40TA65 PO; -PANTOPRAZOLE SOD 40 MG IV VIAL IVP ONE; +RANI150C17 PO; +SUCR1TAB85 PO; +[UNRECOGNIZED DRUG - CODE] PO
== END ==
LOC: LAB 10:30
PROVIDERS: ATTEND Surgery
DX: K27.9 Peptic ulcer, site unspecified, unspecified as acute or chronic, without hemorrhage or perforation (principal); K92.2 Gastrointestinal hemorrhage, unspecified
CPT/HCPCS: 83010

== ENCOUNTER → 2019-02-22 | Outpatient (CLI) | payer MEDICARE, OTHER ==
[2018-11-18 08:43] VITALS: BMI 20.0
[2019-02-22 14:20] LABS: PLATELET COUNT, AUTOMATED 242 K/uL (150-450)
== END ==
LOC: LAB 13:46
PROVIDERS: ATTEND Surgery
DX: R11.0 Nausea (principal); R10.32 Left lower quadrant pain
CPT/HCPCS: 36415; 82310; 82374; 82435; 82565; 82947; 84132; 84295; 84520; 85025